=== PATIENT | male | born 1960 | race Caucasian/White ===

== ENCOUNTER 2016-11-18 08:12 | Emergency (ER) | payer MEDICAID ==
[~2016-11-18] VITALS: Ht 170.2 cm; Wt 70.8 kg
[2016-11-18] MEDS ORDERED: IPRA4AER IH (08:16)
[2016-11-18] MEDS ORDERED: ALBU8.5H IH (08:16)
[2016-11-18] MEDS ORDERED: ALBUTEROL SULFATE/IPRATROPIUM 100-20 MCG/SPRAY 4 GM INHALER IH ONE (09:00)
[2016-11-18] MEDS ORDERED: ALBUTEROL SULFATE HFA 90 MCG/PUFF 8 GM INHALER IH ONE (09:00)
[2016-11-18 09:46] VITALS: BP 120/84
== END 2016-11-18 11:12 | disposition home or self-care (01) ==
LOC: EMS 08:15
DX: J44.1 Chronic obstructive pulmonary disease with (acute) exacerbation (principal); J45.901 Unspecified asthma with (acute) exacerbation; F17.210 Nicotine dependence, cigarettes, uncomplicated; Z88.6 Allergy status to analgesic agent; Z88.8 Allergy status to other drugs, medicaments and biological substances; Z76.0 Encounter for issue of repeat prescription
CPT/HCPCS: 94640; 99283; J3535